=== PATIENT | female | born 1935 | race African-American/Black ===

== ENCOUNTER 2021-04-23 00:35 | Emergency (ER) | payer OTHER ==
[~2021-04-23] VITALS: Ht 172.7 cm; Wt 136.1 kg
--- NOTE | ~2021-04-23 | EMS ---
[place] [id number] EMS Patient Care Report Name: ISRAEL ANDERS Room #: REG DULCE MARIA Camarena#: [id number] Admission: 04/23/21 Attend Phys: Discharge: Date of : 37 Report #: [id number] THIS REPORT FOR: //name// Report Transmitted: 04/23/2021 02:47 EMS Care Summary [place] Incident [id number] @ 04/22/2021 23:43 Incident Location [id number] [place] [address] 305 Patient ISRAEL ANDERS Female, 85 Years 1935 Patient Address [id number] [place] [address] [place] [id number] Patient History Hypertension (HTN),Cardiac Condition - Other,Pulmonary Embolism, Patient Allergies No known allergies, Patient Medications Lisinopril, Chief Complaint cardiac arrest Disposition Transported Lights/Orient Dispatch Reason Cardiac Arrest/ Transported To [facility] Narrative Staff states they put pt to bed approx 10-15min before finding her on the floor, in the doorway of her room, in cardiac arrest. Staff was attempting CPR on our arrival. We confirm pt is non breathing and does [place] [address] EMS Patient Care Report Name: ISRAEL ANDERS Room #: REG Nicol#: [id number] Admission: 04/23/21 Attend Phys: Discharge: Date of : 37 Report #: [id number] pulse. EKG shows asystole. CCC resumed. bag pt w/ BVM and 100% 02. FF inserts iGel. bilat breath sounds, initial CO2 8. IO established and continue ALS protocol, tx as listed in flow chart. Mechanical CPR board placed. Intermittent pulse checks shows pt continues in asystole. Approx 27-28 min into tx, pt CO2 increased to 41. Pulse check reveals carotid pulse, EKG shows SR, no resp effort. Cont to provide ventilations. Pt moved to cot, 12 lead, VS. Transport emergency. On arrival at ER, notice pt HR decreasing to 40-50 bpm, Recheck pulse, now absent. Compressions resumed on arrival at ER. Initial Vitals @00:26P: 73,R: 0,EtCO2: 33, @00:25P: 107,R: 0,EtCO2: 32, @00:24P: 108,R: 0,EtCO2: 35, @00:11P: 159,R: 0,EtCO2: 19, @00:05P: 58,R: 0,EtCO2: 8, @23:56P: 157,EtCO2: 11, @00:10P: 163,R: 0,EtCO2: 12, @00:28P: 69,R: 0,EtCO2: 32,SpO2: 57, @23:58P: 165,R: 0,EtCO2: 17, @00:00P: 162,EtCO2: 8, @00:33P: 68,R: 0,EtCO2: 17,SpO2: 46, @00:08P: 158,R: 0,EtCO2: 14, @00:20P: 111,R: 0,EtCO2: 31, @00:30P: 73,R: 0,EtCO2: 25,SpO2: 63, @00:32P: 67,R: 0,EtCO2: 22, @00:13P: 159,R: 0,EtCO2: 23, @23:53P: 0,R: 0,BP: 0/0,GCS: 3,Glucose: 211,Revised Trauma: 0, @00:28P: 68,R: 0,BP: 159/97,GCS: 3,EtCO2: 28,SpO2: 37,Revised Trauma: 4, Assessments @23:50MENTAL:Unresponsive,SKIN:Pale,HEENT:Head/Face: No Abnormalities,LUNG SOUNDS:General: Other,ABDOMEN:General: Other,PELVIS//GI:EXTREMITIES:PULSE:Carotid: Absent,NEURO:@00:31MENTAL:Unresponsive,SKIN:No Abnormalities,HEENT:Head/Face: No Abnormalities,LUNG SOUNDS:ABDOMEN:PELVIS//GI:EXTREMITIES:PULSE:Carotid: 2+ Normal,NEURO: Impression Cardiac arrest Procedures @23:50Response: UnchangedSucceeded@00:2612-Lead ECGResponse: UnchangedSucceeded@23:51Oxygen FlowRate: 15 Device: Bag Valve Mask (BVM) Response: UnchangedSucceeded@23:53iGEL Response: UnchangedSucceeded@00:22StretcherResponse: Unchanged@23:513-Lead ECGResponse: [address] [address] EMS Patient Care Report Name: ISRAEL ANDERS Room #: REG Nicol#: [id number] Admission: 04/23/21 Attend Phys: Discharge: Date of : 37 Report #: [id number] Unchanged@23:55Epinephrine 1:10 - 1 Milligrams (mg) - Intraosseous (IO)Response: Unchanged@00:05Epinephrine 1:10 - 1 Milligrams (mg) - Intraosseous (IO)Response: Unchanged@00:00Epinephrine 1:10 - 1 Milligrams (mg) - Intraosseous (IO)Response: Unchanged@00:54Epinephrine 1:10 - 1 Milligrams (mg) - Intraosseous (IO)Response: Unchanged@00:15Epinephrine 1:10 - 1 Milligrams (mg) - Intraosseous (IO)Response: Unchanged@00:10Epinephrine 1:10 - 1 Milligrams (mg) - Intraosseous (IO)Response: Improved@23:53Normal Saline (.9% NaCl) 250cc (EZ-IO (Blue 25mm)) Site: SJ-Waspw-Ikfii ProximalResponse: UnchangedSucceeded@00:20Response: Unchanged@23:54Response: UnchangedSucceeded@23:50ALS AssessmentResponse: Unchanged Timeline 23:42,Dispatch Notified 23:43,Dispatched 23:45,En Route 23:48,On Scene 23:50,At Patient 23:50,Response: UnchangedSucceeded, 23:50,ALS Assessment,Response: Unchanged 23:51,Oxygen FlowRate: 15 Device: Bag Valve Mask (BVM) Response: UnchangedSucceeded, 23:51,3-Lead ECG,Response: Unchanged 23:53,iGEL Response: UnchangedSucceeded, 23:53,BP: 0/0 M,PULSE: 0,RR: 0 R,SPO2: Ox,ETCO2: ,B,PAIN: ,GCS: 3, 23:53,Normal Saline (.9% NaCl) 250cc EZ-IO (Blue 25mm) Site: [id number]-Gvjxj-Fhtrg Proximal,Response: UnchangedSucceeded, 23:54,Response: UnchangedSucceeded, 23:55,Epinephrine 1:10 - 1 Milligrams (mg) - Intraosseous (IO),Response: Unchanged 23:56,BP: / M,PULSE: 157,RR: R,SPO2: Ox,ETCO2: 11 ,BG: ,PAIN: ,GCS: , 23:58,BP: / M,PULSE: 165,RR: 0 R,SPO2: Ox,ETCO2: 17 ,BG: ,PAIN: ,GCS: , 00:00,Epinephrine 1:10 - 1 Milligrams (mg) - Intraosseous (IO),Response: Unchanged 00:00,BP: / M,PULSE: 162,RR: R,SPO2: Ox,ETCO2: 8 ,BG: ,PAIN: ,GCS: , 00:05,Epinephrine 1:10 - 1 Milligrams (mg) - Intraosseous (IO),Response: Unchanged 00:05,BP: / M,PULSE: 58,RR: 0 R,SPO2: Ox,ETCO2: 8 ,BG: ,PAIN: ,GCS: , 00:08,BP: / M,PULSE: 158,RR: 0 R,SPO2: Ox,ETCO2: 14 ,BG: ,PAIN: ,GCS: , 00:10,Epinephrine 1:10 - 1 Milligrams (mg) - Intraosseous (IO),Response: Improved 00:10,BP: / M,PULSE: 163,RR: 0 R,SPO2: Ox,ETCO2: 12 ,BG: ,PAIN: ,GCS: , 00:11,BP: / M,PULSE: 159,RR: 0 R,SPO2: Ox,ETCO2: 19 ,BG: ,PAIN: ,GCS: , 00:13,BP: / M,PULSE: 159,RR: 0 R,SPO2: Ox,ETCO2: 23 ,BG: ,PAIN: ,GCS: , 00:15,Epinephrine 1:10 - 1 Milligrams (mg) - Intraosseous (IO),Response: Unchanged 00:20,BP: / M,PULSE: 111,RR: 0 R,SPO2: Ox,ETCO2: 31 ,BG: ,PAIN: ,GCS: , [address] [address] EMS Patient Care Report Name: ISRAEL ANDERS Room #: REG [facility]#: [id number] Admission: 04/23/21 Attend Phys: Discharge: Date of : 37 Report #: [id number] 00:20,Response: Unchanged 00:22,Stretcher,Response: Unchanged 00:24,Depart Scene 00:24,BP: / M,PULSE: 108,RR: 0 R,SPO2: Ox,ETCO2: 35 ,BG: ,PAIN: ,GCS: , 00:25,BP: / M,PULSE: 107,RR: 0 R,SPO2: Ox,ETCO2: 32 ,BG: ,PAIN: ,GCS: , 00:26,12-Lead ECG,Response: UnchangedSucceeded, 00:26,BP: / M,PULSE: 73,RR: 0 R,SPO2: Ox,ETCO2: 33 ,BG: ,PAIN: ,GCS: , 00:28,BP: / M,PULSE: 69,RR: 0 R,SPO2: 57 Ox,ETCO2: 32 ,BG: ,PAIN: ,GCS: , 00:28,BP: 159/97 M,PULSE: 68,RR: 0 R,SPO2: 37 Ox,ETCO2: 28 ,BG: ,PAIN: ,GCS: 3, 00:30,BP: / M,PULSE: 73,RR: 0 R,SPO2: 63 Ox,ETCO2: 25 ,BG: ,PAIN: ,GCS: , 00:32,BP: / M,PULSE: 67,RR: 0 R,SPO2: Ox,ETCO2: 22 ,BG: ,PAIN: ,GCS: , 00:33,At Destination 00:33,BP: / M,PULSE: 68,RR: 0 R,SPO2: 46 Ox,ETCO2: 17 ,BG: ,PAIN: ,GCS: , 00:54,Epinephrine 1:10 - 1 Milligrams (mg) - Intraosseous (IO),Response: Unchanged 00:57,Call Closed 23:42,Call Received Disclaimer v1.1 Copyright 2020 [employer] This EMS Care Summary contains data elements from the applicable legal record (which may be displayed differently). It is designed to provide pertinent information for the following purposes: continuity of care, clinical quality, and state data reporting. The complete legal record is available to ED staff and administrators of the receiving hospital in [employer] [employer] Patient Tracker. All data is provided "as is."
[2021-04-23 01:16] LABS: CALCIUM 10.8 mg/dL (8.5-10.1); CREATININE 1.4 mg/dL (0.6-1.0)
[2021-04-23 01:21] LABS: POTASSIUM 5.2 mmol/L (3.5-5.1)
[2021-04-23 01:34] LABS: BE(vivo) -29.5 mmol/L (-2 to +3); HCO3 8.3 mmol/L (22.0-26.0); PCO2 88.2 mmHg (35.0-45.0); PO2 57.5 mmHg (80.0-100.0); pH 6.591 (7.360-7.450)
[2021-04-23 03:56] VITALS: BP 0/0
--- NOTE | 2021-04-23 07:34 | EKG ---
[address] [place] [address] ELECTROCARDIOGRAM REPORT Name: ISRAEL ANDERS Room #: [facility] [id number] Admission: 04/23/21 Attend Phys: Discharge: 04/23/21 Date of : 37 Report #: [id number] [facility] ED Test Date: 2021-04-23 Test Time: 01:19:42 Pat Name: ISRAEL ANDERS Department: Room: Gender: F Car [employer]over: MARTINE : 1935 Requested By: Kenney Stallworth Order Number: [id number] MD: Ben Alexandra Measurements Intervals [place] Rate: 56 P: 0 [place]: 236 QRS: -82 QRSD: 140 T: 72 QT: 466 QTc: 450 Interpretive Statements Sinus rhythm Atrial premature complexes Prolonged [place] interval RBBB Baseline wander in lead(s) I,III,aVR,aVL No previous ECG available for comparison Electronically Signed On 04-23-2021 7:34:00 CDT by Ben Alexandra [email or web address] <ELECTRONICALLY SIGNED> By: Ben Alexandra MD, [facility] 04/23/21 0734 D: 10/118 8 Ben Alexandra MD, FACC /EPI
== END 2021-04-23 03:56 ==
LOC: ER 00:35
PROVIDERS: Emergency Medicine
DX: I46.9 Cardiac arrest, cause unspecified (principal); R00.1 Bradycardia, unspecified; E87.6 Hypokalemia; K21.9 Gastro-esophageal reflux disease without esophagitis; F02.80 Dementia in other diseases classified elsewhere, unspecified severity, without behavioral disturbance, psychotic disturbance, mood disturbance, and anxiety; Z86.711 Personal history of pulmonary embolism; Z86.718 Personal history of other venous thrombosis and embolism